=== PATIENT | female | born 1965 | race African-American/Black ===

== ENCOUNTER → 2021-04-09 | Outpatient (CLI) | payer MEDICARE, OTHER ==
--- NOTE | 2021-04-09 21:27 | KCIC ---
Left foot 3 views. HISTORY: Left foot pain, M 79.672 3 views were taken the left foot. There is not evidence of an acute fracture or osseous abnormality. IMPRESSION: 1. No acute osseous abnormality noted in the left foot. Electronically signed by: Narendra Gordon MD (04/09/2021 9:24 PM) [facility]
== END ==
LOC: KCIC 12:38
PROVIDERS: ATTEND Family Medicine
DX: M79.672 Pain in left foot (principal)
CPT/HCPCS: 73630